=== PATIENT | female | born 1960 | race Caucasian/White ===

== ENCOUNTER 2024-06-21 15:14 | Outpatient (CLI) | payer MEDICARE | END 2024-06-21 15:15 | disposition home or self-care (01) | LOC: CSHRAD 15:14 | PROVIDERS: ATTEND Family Medicine | DX: M54.50 Low back pain, unspecified (principal); M47.816 Spondylosis without myelopathy or radiculopathy, lumbar region | CPT/HCPCS: 72100 ==